=== PATIENT | female | born 1995 | race American Indian/Alaskan Native ===

== ENCOUNTER 2019-10-30 17:36 | Emergency (ER) | payer SELFPAY ==
[2019-10-30 18:12] VITALS: BP 138/71
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
--- NOTE | 2019-10-30 19:16 | XRay Report ---
XR hand 3+V LT INDICATION / CLINICAL INFORMATION: Left hand pain. COMPARISON: None available. FINDINGS: BONES/JOINT(S): No acute fracture or subluxation. No significant degenerative changes. SOFT TISSUES: No significant abnormality. ADDITIONAL FINDINGS: None. Signer Name: Theodore Lion MD Signed: 10/30/2019 7:12 PM Workstation Name: [id number]
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
[2019-10-30] MEDS ORDERED: IBUPROFEN 600 MG TAB PO ONE (20:11)
[2019-10-30] MEDS ORDERED: ACETAMINOPHEN 500 MG TAB PO ONE (20:11)
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
== END 2019-10-30 21:30 | disposition home or self-care (01) ==
LOC: ED 17:36
DX: S63.92XA Sprain of unspecified part of left wrist and hand, initial encounter (principal); S46.912A Strain of unspecified muscle, fascia and tendon at shoulder and upper arm level, left arm, initial encounter; F17.200 Nicotine dependence, unspecified, uncomplicated; Z79.1 Long term (current) use of non-steroidal anti-inflammatories (NSAID); Z79.899 Other long term (current) drug therapy; X58.XXXA Exposure to other specified factors, initial encounter; Y93.89 Activity, other specified; Y92.89 Other specified places as the place of occurrence of the external cause; Y99.8 Other external cause status
CPT/HCPCS: 70110

== ENCOUNTER 2019-11-14 23:58 | Emergency (ER) | payer SELFPAY ==
[2019-11-15 02:20] LABS: Bacteria,Urine 2+ /HPF (Negative); Bilirubin,Urine NEG (Negative); Blood,Urine MOD (Negative); Color,Urine Yellow (Yellow); Mucus,Urine 3+ /HPF; Protein,Urine <15 mg/dL mg/dL (Negative); Urobilinogen,Urine < 2.0 mg/dL (<2.0)
[2019-11-15 02:21] LABS: HCG Qualitative,Urine Negative (Negative)
[2019-11-15] MEDS ORDERED: ONDANSETRON 4 MG/2 ML INJ IV ONE (03:09)
[2019-11-15] MEDS ORDERED: KETOROLAC 30 MG/1 ML INJ IV ONE (03:09)
[2019-11-15] MEDS ORDERED: SODIUM CHLORIDE 0.9% 1000 ML 1,000 ML IV ONE (03:09)
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
== END 2019-11-15 07:15 | disposition left against medical advice (07) ==
LOC: ED 23:58
DX: R10.2 Pelvic and perineal pain (principal); R11.10 Vomiting, unspecified; R19.7 Diarrhea, unspecified; F17.200 Nicotine dependence, unspecified, uncomplicated; I10 Essential (primary) hypertension; F12.10 Cannabis abuse, uncomplicated
CPT/HCPCS: 81001; 81025; 99283; J1885; J2405; J7030